=== PATIENT | male | born 2000 | race Caucasian/White ===

== ENCOUNTER 2022-12-01 09:39 | Emergency (ER) | payer OTHER | END 2022-12-01 10:36 | disposition home or self-care (01) | LOC: DL.ED 09:39 | DX: L60.0 Ingrowing nail (principal) | CPT/HCPCS: 99282; 99283 ==

== ENCOUNTER 2024-10-25 16:54 | Emergency (ER) | payer OTHER ==
[2024-10-25] MEDS ORDERED: Sodium Chloride 0.9% 10 ML Syringe FLUSH PRN (17:22)
[2024-10-25] MEDS: Famotidine 20 MG/2 ML SDV IVPUSH ONE (17:28)
[2024-10-25] MEDS: methylPREDNISolone Sodium Succinate 125 MG/2 ML SDV IVPUSH ONE (17:28)
[2024-10-25] MEDS: diphenhydrAMINE 50 MG/ML SDV IVPUSH ONE (17:28)
== END 2024-10-25 17:51 | disposition home or self-care (01) ==
LOC: DL.ED 16:54
DX: L23.9 Allergic contact dermatitis, unspecified cause (principal)
CPT/HCPCS: 96374; 96375; 99283; J1200; J2919